=== PATIENT | female | born 2000 | race African-American/Black ===

== ENCOUNTER 2022-12-26 19:53 | Emergency (ER) | payer SELFPAY ==
[2022-12-26] MEDS ORDERED: diphenhydrAMINE 50 MG/ML VIAL ONE (20:34)
== END 2022-12-26 21:15 | disposition home or self-care (01) ==
LOC: ERS 19:53
DX: L50.9 Urticaria, unspecified (principal)
CPT/HCPCS: 96372; 99282; J1200

== ENCOUNTER 2023-11-02 16:46 | Emergency (ER) | payer SELFPAY ==
[2023-11-02] MEDS ORDERED: Acetaminophen 500 MG TAB ONE (17:31)
[2023-11-02 17:55] LABS: SARS-CoV-2 NAA Rapid Test Not Detected (NotDetected)
== END 2023-11-02 17:34 | disposition home or self-care (01) ==
LOC: ERS 16:46
DX: B34.9 Viral infection, unspecified (principal); F17.290 Nicotine dependence, other tobacco product, uncomplicated; Z20.822 Contact with and (suspected) exposure to COVID-19
CPT/HCPCS: 99283

== ENCOUNTER 2024-04-07 21:30 | Emergency (ER) | payer SELFPAY | END 2024-04-08 00:34 | disposition home or self-care (01) | LOC: ERS 21:30 | DX: L03.222 Acute lymphangitis of neck (principal); F17.290 Nicotine dependence, other tobacco product, uncomplicated | CPT/HCPCS: 99283 ==